=== PATIENT | female | born 1955 | race Caucasian/White ===

== ENCOUNTER → 2019-04-28 | Outpatient (CLI) | payer OTHER ==
[2019-04-29 15:06] LABS: HPV 16 Negative (Negative); HPV 18 Negative (Negative); HPV OTHER HR TYPES Negative (Negative)
== END | disposition home or self-care (01) ==
LOC: LAB SHORT 12:33 → LAB 12:33
PROVIDERS: Obstetrics & Gynecology Gynecology
DX: Z12.4 Encounter for screening for malignant neoplasm of cervix (principal)
CPT/HCPCS: 87624; G0123

== ENCOUNTER 2020-09-16 08:14 | Day surgery (SDC) | payer OTHER ==
[~2020-09-16 08:14] MED LIST: EXTRA PAIN REL1 EAC2 PO; Imitrex50 MG; KRILL OIL500 MG PO; Vitamin D2000 UNIT PO
== END 2020-09-16 22:51 | disposition home or self-care (01) ==
LOC: MOI MAM 08:14
DX: C83.34 Diffuse large B-cell lymphoma, lymph nodes of axilla and upper limb (principal); Z79.82 Long term (current) use of aspirin; Z79.899 Other long term (current) drug therapy; Z88.8 Allergy status to other drugs, medicaments and biological substances
CPT/HCPCS: 19083; 38505; 76942; 77065; 88305; 88341; 88342; A4648

== ENCOUNTER → 2020-09-20 | Outpatient (CLI) | payer OTHER ==
[2020-09-20 17:17] LABS: Hematocrit 42.9 % (33.0-51.0); Mean Corpuscular HGB 29.2 pg (26.0-34.0); Mean Corpuscular HGB Conc 32.6 g/dL (31.5-36.5); Mean Corpuscular Volume 90 fL (80-100); Mean Platelet Volume 9.6 fL (9.1-12.4); Platelet Count 234 K/mm3 (150-400); RDW Coefficient Variation 13.2 % (11.7-14.2); RDW Standard Deviation 43.3 fL (35.1-46.3); Red Blood Cell Count 4.79 M/mm3 (3.80-5.20)
[2020-09-20 17:47] LABS: Alanine Aminotransfer (ALT/SGP 51 U/L (12-78); Albumin, Blood 4.4 g/dL (3.4-5.0); Albumin/Globulin Ratio 1.9 (0.8-1.8); Alk Phos 94 U/L (50-136); Anion Gap 8 mmol/L (6-16); Aspartate Aminotrans (AST/SGOT 45 U/L (12-37); Bilirubin, Total 0.6 mg/dL (0.1-1.0); Blood Urea Nitrogen 24 mg/dL (8-24); Bun/Creatinine Ratio 32.3 (12.0-20.0); CO2, Blood 24 mmol/L (21-32); Calcium, Blood 8.9 mg/dL (8.5-10.1); Chloride, Blood 110 mmol/L (98-108); Creatinine, Blood 0.74 mg/dL (0.40-1.00); Globulin, Blood 2.3 g/dL (2.2-4.0); Glomerular Filtration Rate >60 (60-); Glucose, Blood 114 mg/dL (70-99); Lactate Dehydrogenase (Ld),Bld 313 U/L (100-240); Sodium, Blood 142 mmol/L (136-145); Total Protein, Blood 6.7 g/dL (6.4-8.2); Uric Acid, Blood 5.4 mg/dL (2.6-6.0)
[2020-09-20 17:50] LABS: BASOPHILS ABSOLUTE MAN 0.09 K/mm3 (0.00-0.23); BASOPHILS PERCENT MAN 1 % (0-2); EOSINOPHILS ABSOLUTE MAN 0.27 K/mm3 (0.00-0.68); EOSINOPHILS PERCENT MAN 3 % (0-6); LYMPHOCYTES % ATYPICAL MANUAL 6 % (0-0); LYMPHOCYTES ABSOLUTE MAN 4.14 K/mm3 (0.84-5.20); LYMPHOCYTES PERCENT MAN 40 % (21-46); MONOCYTES ABSOLUTE MAN 0.99 K/mm3 (0.16-1.47); MONOCYTES PERCENT MAN 11 % (4-13); NEUTROPHILS ABSOLUTE MAN 3.51 K/mm3 (1.96-9.15); SEG NEUTROPHILS PERCENT MAN 39 % (41-73); TOTAL CELLS COUNTED 100
== END | disposition home or self-care (01) ==
LOC: LAB 15:30 → LAB SHORT 15:30
PROVIDERS: Hospitalist
DX: C85.11 Unspecified B-cell lymphoma, lymph nodes of head, face, and neck (principal)
CPT/HCPCS: 80053; 83615; 84550; 85025

== ENCOUNTER 2020-10-06 06:21 | Day surgery (SDC) | payer OTHER ==
[~2020-10-06] VITALS: Ht 167.6 cm; Wt 80.8 kg
--- NOTE | 2020-10-06 08:33 | NUR ---
10/06/20 [address] SCOTT, MEDIPORT PLACEMENT IS GOOD.
== END 2020-10-06 08:53 | disposition home or self-care (01) ==
LOC: ORSCSDS 06:21
PROVIDERS: Surgery
PROC: 05H533Z Insertion of Infusion Device into Right Subclavian Vein, Percutaneous Approach (ICD-10-PCS; principal; 2020-10-06 07:30)
PROC: B5161ZA Fluoroscopy of Right Subclavian Vein using Low Osmolar Contrast, Guidance (ICD-10-PCS; principal; 2020-10-06 07:30)
DX: C83.38 Diffuse large B-cell lymphoma, lymph nodes of multiple sites (principal)
CPT/HCPCS: 77001; C1788; J0690; J1642; J2250; J2704; J3010; J7120

== ENCOUNTER 2020-10-10 10:04 | Day surgery (SDC) | payer OTHER | END 2020-10-10 22:50 | disposition home or self-care (01) | LOC: ORSCMMR 10:04 → RAD 10:04 | DX: C83.01 Small cell B-cell lymphoma, lymph nodes of head, face, and neck (principal) | CPT/HCPCS: 36598; Q9967 ==

== ENCOUNTER 2020-10-25 09:58 | Day surgery (SDC) | payer OTHER ==
[~2020-10-25] VITALS: Wt 84.2 kg
[2020-10-25] MEDS ORDERED: Prednisone10 MG PO (10:37)
--- NOTE | 2020-10-25 13:00 | NUR ---
PATIENT TO THE LAB, AMBULATORY FOR MEDIPORT CHANGE.
--- NOTE | 2020-10-25 15:19 | NUR ---
DISCHARGE PT REMAINDED A&OX3 AND DENIED ANY PAIN DURING RECOVERY. RIGHT UPPER CHEST SITE REMAINED CDI-NO HEMATOMA NOTED. IV DC'D WITH CANULA IN TACT. PT ABLE TO DRESS SELF INDEPENDATLY. DISCHARGE PAPERWORK GONE OVER WITH PT. PT VERBALLY STATED THE UNDERSTANDING OF THE DISCHARGE EDUCATION AND DENIED ANY QUESTIONS AT THIS TIME. PT WHEELED OUT BY THIS NURSE.
== END 2020-10-25 15:30 | disposition home or self-care (01) ==
LOC: MHTC 09:58
DX: T82.398A Other mechanical complication of other vascular grafts, initial encounter (principal); C85.80 Other specified types of non-Hodgkin lymphoma, unspecified site; G43.909 Migraine, unspecified, not intractable, without status migrainosus; Z86.73 Personal history of transient ischemic attack (TIA), and cerebral infarction without residual deficits; Z88.8 Allergy status to other drugs, medicaments and biological substances; Z91.048 Other nonmedicinal substance allergy status; Z79.82 Long term (current) use of aspirin; Z79.899 Other long term (current) drug therapy; Y84.0 Cardiac catheterization as the cause of abnormal reaction of the patient, or of later complication, without mention of misadventure at the time of the procedure
CPT/HCPCS: 36582; 99152; 99153; C1769; C1788; J0690; J1642; J1644; J2250; J3010; J7040

== ENCOUNTER 2021-03-29 06:30 | Day surgery (SDC) | payer MEDICARE, BC ==
[~2021-03-29] VITALS: Ht 167.6 cm; Wt 84.0 kg
[~2021-03-29 06:30] MED LIST changes: +Prednisone10 MG PO; +Vitamin C100 M1 PO; +ZYRTEC10 M1 PO
--- NOTE | 2021-03-29 08:30 | NUR ---
MEDITECH DOWN. DOWNTIME NOTES IN CHART.
--- NOTE | 2021-03-29 10:00 | NUR ---
DISCHARGED HOME VIA WHEELCHAIR. DRIVING.
== END 2021-03-29 10:00 | disposition home or self-care (01) ==
LOC: MHTC 06:30
DX: C88.4 Extranodal marginal zone B-cell lymphoma of mucosa-associated lymphoid tissue [MALT-lymphoma] (principal); Z86.73 Personal history of transient ischemic attack (TIA), and cerebral infarction without residual deficits; Z79.82 Long term (current) use of aspirin; Z79.899 Other long term (current) drug therapy
CPT/HCPCS: 36590; 99152; 99153; J0690; J2250; J3010; J7030; J7040

== ENCOUNTER → 2022-05-19 | Outpatient (CLI) | payer MEDICARE, BC ==
[~2022-05-19] MED LIST changes: +CIPR500 PO; +ONDA4ODT MM
== END | disposition home or self-care (01) ==
LOC: LAB 10:28 → LAB SHORT 10:28
DX: R82.90 Unspecified abnormal findings in urine (principal)
CPT/HCPCS: 87077; 87086; 87186

== ENCOUNTER 2022-12-21 07:38 | Day surgery (SDC) | payer MEDICARE, BC, OTHER ==
[~2022-12-21] VITALS: Ht 167.6 cm; Wt 82.0 kg
[2022-12-21] MEDS ORDERED: B-COMPLEX1 EACH (08:19)
== END 2022-12-21 09:54 | disposition home or self-care (01) ==
LOC: ORSCSDS 07:38
PROVIDERS: Student in an Organized Health Care Education/Training Program
PROC: 0DBN8ZX Excision of Sigmoid Colon, Via Natural or Artificial Opening Endoscopic, Diagnostic (ICD-10-PCS; principal; 2022-12-21 08:45)
PROC: 0DBH8ZX Excision of Cecum, Via Natural or Artificial Opening Endoscopic, Diagnostic (ICD-10-PCS; principal; 2022-12-21 08:45)
DX: Z12.11 Encounter for screening for malignant neoplasm of colon (principal); Z86.010 Personal history of colon polyps; K63.5 Polyp of colon; K57.30 Diverticulosis of large intestine without perforation or abscess without bleeding; Z79.899 Other long term (current) drug therapy
CPT/HCPCS: 88305; J2704; J7120